=== PATIENT | female | born 1960 | race Caucasian/White ===

== ENCOUNTER → 2017-09-15 | Emergency (ER) | payer OTHER ==
[~2017-09-15] VITALS: Ht 172.7 cm; Wt 73.5 kg
[~2017-09-15] MED LIST: AUGMENTIN1 TAB.SR2 PO; FLOVENT HFA10.6 GM IH; NEXIUM I.V40 MG/VIAL IV; PROVENTIL HFA6.7 GM IH; TUSSIONEX PENN115 ML PO; XANAX XR2 MG PO
== END | disposition home or self-care (01) ==
LOC: ER 02:44
DX: R05 Cough (principal); R51 Headache

== ENCOUNTER → 2017-12-15 | Emergency (ER) | payer OTHER ==
[~2017-12-15] VITALS: Ht 172.7 cm; Wt 76.2 kg
[~2017-12-15] MED LIST changes: +FORTAMET1000 MG; +MEDROLPACK PO; +PROMETHAZINE W118 ML PO; +TESSALON PERLE100 M1 PO; +ZITHROMAX500 MG PO
== END | disposition home or self-care (01) ==
LOC: ER 11:33
DX: J18.9 Pneumonia, unspecified organism (principal)

== ENCOUNTER 2020-08-08 09:24 | Outpatient (CLI) | payer OTHER | END 2020-08-08 09:32 | disposition home or self-care (01) | LOC: TOM 09:24 | PROVIDERS: ATTEND General Practice | DX: K76.0 Fatty (change of) liver, not elsewhere classified (principal); R10.84 Generalized abdominal pain; M54.31 Sciatica, right side; R19.5 Other fecal abnormalities; E11.69 Type 2 diabetes mellitus with other specified complication ==

== ENCOUNTER 2021-03-06 13:10 | Outpatient (CLI) | payer OTHER | END 2021-03-06 13:35 | disposition home or self-care (01) | LOC: MRI 13:10 | PROVIDERS: ATTEND General Practice | DX: Z12.31 Encounter for screening mammogram for malignant neoplasm of breast (principal); Z87.898 Personal history of other specified conditions; M54.5 Low back pain; E11.65 Type 2 diabetes mellitus with hyperglycemia; E11.8 Type 2 diabetes mellitus with unspecified complications; Z13.88 Encounter for screening for disorder due to exposure to contaminants; Z12.11 Encounter for screening for malignant neoplasm of colon ==